=== PATIENT | female | born 1940 | race Caucasian/White ===

== ENCOUNTER 2018-01-14 12:50 | Emergency (ER) | payer MEDICARE, BC ==
[2018-01-14 13:03] VITALS: BP 130/60; PULSE 84; RESP 20; TEMP 98.1
--- NOTE | 2018-01-14 13:34 | ED ---
General Adult HPI - General Chief complaint: Urogenital Stated complaint: Cannot Urinate Time Seen by Provider: 01/14/18 13:13 Source: patient, RN notes reviewed Mode of arrival: wheelchair Limitations: no limitations - History of Present Illness Initial comments: 77-year-old female presents with concern for bladder prolapse. Patient has had small bulging sensation in her vagina for the past several months. Today she noticed a large swelling coming from her vagina. She also states she had difficulty urinating. Denies fever or chills. Denies any changes in her bowels. She does have history of hemorrhoids. She has not seen a cargo surveyor regarding this issue. - Related Data Previous Rx's Medication Instructions Recorded Nitrofurantoin Macrocrystal 100 mg PO BID #14 cap 01/14/18 [Macrodantin] Allergies Allergy/AdvReac Type Severity Reaction Status Date / Time No Known Allergies Allergy Verified 01/14/18 13:02 Review of Systems ROS Statement: Those systems with pertinent positive or pertinent negative responses have been documented in the HPI. ROS Other: All systems not noted in ROS Statement are negative. Past Medical History Past Medical History: Hypertension, Myocardial Infarction ([place]) History of Any Multi-Drug Resistant Organisms: None Reported Past Surgical History: Joint Replacement, Orthopedic Surgery Past Psychological History: No Psychological Hx Reported Smoking Status: Never smoker Past Alcohol Use History: None Reported Past Drug Use History: None Reported General Exam Limitations: no limitations General appearance: alert, in no apparent distress Head exam: Present: atraumatic, normocephalic Eye exam: Present: normal appearance, PERRL, EOMI ENT exam: Present: normal exam Neck exam: Present: normal inspection. Absent: tenderness, meningismus Respiratory exam: Present: normal lung sounds bilaterally. Absent: respiratory distress, wheezes Cardiovascular Exam: Present: regular rate, normal rhythm GI/Abdominal exam: Present: soft. Absent: distended, tenderness, guarding Rectal exam: Present: hemorrhoids External exam: Present: swelling, other (Bladder prolapse) Speculum exam: Absent: erythema, cervical discharge, vaginal bleeding Extremities exam: Present: normal inspection, full ROM. Absent: tenderness Neurological exam: Present: alert, oriented X3 Psychiatric exam: Present: normal affect, normal mood Skin exam: Present: warm, dry, intact Course Vital Signs 01/14/18 12:59 Temperature 98.1 F Pulse Rate 84 Respiratory 20 Rate Blood Pressure 130/60 O2 Sat by Pulse 98 Oximetry Medical Decision Making - Medical Decision Making 77-year-old female presenting with vaginal bulge, exam consistent with bladder prolapse. Bladder is reduced without pain or difficulty. Patient is able to urinate in the emergency department, no issues. Urinalysis is positive for UTI. Patient will be started on nitrofurantoin, awaiting culture results. - Lab Data Lab Results 01/14/18 Range/Units 13:22 Urine Color Light Yellow Urine Appearance Cloudy H (Clear) Urine pH 5.0 (5.0-8.0) Ur Specific [place] 1.007 (1.001-1.035) Urine Protein Negative (Negative) Urine Glucose (UA) Negative (Negative) Urine Ketones Negative (Negative) Urine Blood Negative (Negative) Urine Nitrite Positive H (Negative) Urine Bilirubin Negative (Negative) Urine Urobilinogen <2.0 (<2.0) mg/dL Ur Leukocyte Esterase Large H (Negative) Urine RBC 10 H (0-5) /hpf Urine WBC 43 H (0-5) /hpf Urine WBC Clumps Rare H (None) /hpf Ur Squamous Epith Cells <1 (0-4) /hpf Urine Bacteria Many H (None) /hpf Hyaline Casts 3 H (0-2) /lpf Urine Mucus Rare H (None) /hpf Disposition Clinical Impression: Bladder prolapse, UTI (urinary tract infection) Disposition: HOME SELF-CARE Condition: Good Instructions: Uterine Prolapse (ED), Urinary Tract Infection in Women (ED) Prescriptions: Nitrofurantoin Macrocrystal [Macrodantin] 100 mg PO BID #14 cap Referrals: Ashley Gordon MD [Primary Care Provider] - 1-2 days Logan Huber MD [STAFF PHYSICIAN] - 1-2 days Antoni Mane DO [Doctor of Osteopathic Medicine] - 1-2 days Time of Disposition: 13:33
[2018-01-14 13:37] LABS: Appearance,Urine Cloudy (Clear); Bacteria,Urine Many /hpf; Bilirubin,Urine Negative (Negative); Blood,Urine Negative (Negative); Color,Urine Light Yellow; Glucose,Urine (UA) Negative (Negative); Hyaline Casts,Urine 3 /lpf (0-2); Ketones,Urine Negative (Negative); Leukocyte Esterase,Urine Large (Negative); Mucus,Urine Rare /hpf; Protein,Urine Negative (Negative); RBC,Urine 10 /hpf (0-5); Specific Gravity,Urine 1.007 (1.001-1.035); Squamous Epithelial Cell,Urine <1 /hpf (0-4); Urobilinogen,Urine <2.0 mg/dL (<2.0); WBC,Urine 43 /hpf (0-5)
== END 2018-01-14 13:55 | disposition home or self-care (01) ==
LOC: EC 12:50
DX: N81.10 Cystocele, unspecified (principal); N39.0 Urinary tract infection, site not specified; K64.9 Unspecified hemorrhoids
CPT/HCPCS: 81001; 87077; 87086; 87186; 99283

== ENCOUNTER → 2018-03-10 | Outpatient (CLI) | payer MEDICARE, BC ==
[2018-03-10 18:33] LABS: Albumin 4.4 g/dL (3.5-5.0); Calcium 9.5 mg/dL (8.4-10.2); Potassium 4.2 mmol/L (3.5-5.1); Total Bilirubin 0.5 mg/dL (0.2-1.3)
[2018-03-10 18:38] LABS: Basophils % (A) 0 %; Eosinophils # (A) 0.3 k/uL (0-0.7); Eosinophils % (A) 3 %; HCT 39.6 % (34.0-46.0); HGB 13.1 gm/dL (11.4-16.0); Lymphocytes % (A) 18 %; MCH 28.7 pg (25.0-35.0); MCHC 32.9 g/dL (31.0-37.0); MCV 87.3 fL (80.0-100.0); Mean Platelet Volume 8.4; Monocytes # (A) 0.6 k/uL (0-1.0); Monocytes % (A) 5 %; Neutrophils # (A) 7.7 k/uL (1.3-7.7); Neutrophils % (A) 71 %; Platelet Count 355 k/uL (150-450); RBC 4.54 m/uL (3.80-5.40); RDW 12.7 % (11.5-15.5); WBC 10.8 k/uL (3.8-10.6)
[2018-03-10 18:42] LABS: T4, Free (Free Thyroxine) 1.28 ng/dL (0.78-2.19)
[2018-03-11 02:00] LABS: Vitamin D 25 Hydroxy 8.9 ng/mL (30.0-100.0)
== END ==
LOC: MMGSC 15:03
PROVIDERS: ATTEND Family Medicine
DX: N39.0 Urinary tract infection, site not specified (principal); R10.9 Unspecified abdominal pain
CPT/HCPCS: 36415; 80053; 82306; 82607; 84439; 84443; 85025

== ENCOUNTER 2024-07-29 12:40 | Observation (INO) | payer MEDICARE ==
[2024-07-29] MEDS: SODIUM CHLORIDE 0.9% 1,000 ML IV STA (13:13)
[2024-07-29 13:16] LABS: Basophils # (A) 0.1 k/uL (0-0.2); Basophils % (A) 1 %; Eosinophils # (A) 0.1 k/uL (0-0.7); Eosinophils % (A) 1 %; HCT 38.1 % (34.0-46.0); HGB 12.4 gm/dL (11.4-16.0); Lymphocytes # (A) 1.4 k/uL (1.0-4.8); Lymphocytes % (A) 14 %; MCH 30.1 pg (25.0-35.0); MCHC 32.7 g/dL (31.0-37.0); MCV 92.2 fL (80.0-100.0); Mean Platelet Volume 7.6; Monocytes # (A) 0.5 k/uL (0-1.0); Monocytes % (A) 5 %; Neutrophils # (A) 8.3 k/uL (1.3-7.7); Neutrophils % (A) 78 %; Platelet Count 274 k/uL (150-450); RBC 4.13 m/uL (3.80-5.40); RDW 12.4 % (11.5-15.5); WBC 10.6 k/uL (3.8-10.6)
--- NOTE | 2024-07-29 13:16 | ED ---
General Adult HPI - General Chief complaint: Syncope Stated complaint: syncope Time Seen by Provider: 07/29/24 12:44 Source: patient, RN notes reviewed Mode of arrival: EMS Limitations: no limitations - History of Present Illness Initial comments: Patient is an 84-year-old female presenting to the emergency department with concerns with syncopal episode. Episode was after lunch and lasted a minute or 2. Patient did have nausea and vomiting following this that has resolved and patient is feeling normal at this time. No history of similar symptoms previously. No chest or back pain. No abdominal pain. No dyspnea. No confusion or weakness - Related Data Home Medications Medication Instructions Recorded Confirmed Furosemide [Lasix] 20 mg PO DAILY 01/14/18 07/29/24 lisinopriL 40 mg PO DAILY 01/14/18 07/29/24 Atorvastatin [Lipitor] 10 mg PO DAILY 07/29/24 07/29/24 amLODIPine [Norvasc] 10 mg PO DAILY 07/29/24 07/29/24 Allergies Allergy/AdvReac Type Severity Reaction Status Date / Time No Known Allergies Allergy Verified 01/14/18 13:43 Review of Systems ROS Statement: Those systems with pertinent positive or pertinent negative responses have been documented in the HPI. ROS Other: All systems not noted in ROS Statement are negative. Constitutional: Denies: fever Eyes: Denies: eye pain ENT: Denies: ear pain Cardiovascular: Denies: chest pain Gastrointestinal: Reports: as per HPI, nausea, vomiting. Denies: abdominal pain Musculoskeletal: Denies: back pain Neurological: Denies: headache, weakness Past Medical History Past Medical History: Hypertension, Myocardial Infarction ([place]) History of Any Multi-Drug Resistant Organisms: None Reported Past Surgical History: Joint Replacement, Orthopedic Surgery Past Psychological History: No Psychological Hx Reported Past Alcohol Use History: None Reported Past Drug Use History: None Reported General Exam Limitations: no limitations General appearance: alert, in no apparent distress Head exam: Present: normocephalic Eye exam: Present: normal appearance, PERRL, EOMI Neck exam: Present: normal inspection. Absent: tenderness, meningismus Respiratory exam: Present: normal lung sounds bilaterally Cardiovascular Exam: Present: regular rate, normal rhythm GI/Abdominal exam: Present: soft. Absent: tenderness Extremities exam: Present: normal inspection. Absent: pedal edema, calf tenderness Neurological exam: Present: alert, CN II-XII intact. Absent: motor sensory deficit Expanded Neurological exam: Present: protecting the airway Patient oriented to: Present: person, place. Absent: time (Has difficulty with this however believes it may be 24 on third attempt) Speech: Present: fluid speech Cranial nerves: EOM's Intact: Normal Motor strength exam: RUE: 5, LUE: 5, RLE: 5, LLE: 5 Eye Response: (4) open spontaneously Motor Response: (6) obeys commands Verbal Response: (4) confused conversation Psychiatric exam: Present: normal affect, normal mood Skin exam: Present: normal color Course Vital Signs 07/29/24 12:46 Temperature 97.7 F Pulse Rate 64 Respiratory 16 Rate Blood Pressure 97/47 O2 Sat by Pulse 96 Oximetry EKG Findings - EKG Results: EKG: interpreted by MERLIN (Left axis. Inferior Q waves. Poor R wave progression.), sinus rhythm, normal ST/T Medical Decision Making - Medical Decision Making Was pt. sent in by a medical professional or institution (, PA, BUTTON MACHINE OPERATOR, urgent care, hospital, or snf...) When possible be specific @ -No Did you speak to anyone other than the patient for history (EMS, parent, family, police, friend...)? What history was obtained from this source @ -Family is present and provides history of syncopal episode as patient does not recall Did you review nursing and triage notes (agree or disagree)? Why? @ -I reviewed and agree with nursing and triage notes Were old charts reviewed (outside hosp., previous admission, EMS record, old EKG, old radiological studies, urgent care reports/EKG's, snf records)? Report findings @ -Previous labs reviewed including BUN and creatinine Differential Diagnosis (chest pain, altered mental status, abdominal pain women, abdominal pain men, vaginal bleeding, weakness, fever, dyspnea, syncope, headache, dizziness, GI bleed, back pain, seizure, CVA, palpatations, mental health, musculoskeletal)? @ -Differential Syncope: Valvular disease, hypertrophic cardiomyopathy, pulmonary embolism, tamponade, tachycardia, bradycardia, VT, hypovolemia, hemorrhage, dissection, anemia, intracranial hemorrhage, seizure, hypoglycemia, carbon monoxide poisoning, this is not meant to be an all-inclusive list. EKG interpreted by me (3pts min.). @ -As above X-rays interpreted by me (1pt min.). @ -Chest x-ray shows no acute process CT interpreted by me (1pt min.). @ -CT scan of the brain does not reveal acute abnormality U/S interpreted by me (1pt. min.). @ -None done What testing was considered but not performed or refused? (CT, X-rays, U/S, labs)? Why? @ -None What meds were considered but not given or refused? Why? @ -None Did you discuss the management of the patient with other professionals (professionals i.e. , PA, BUTTON MACHINE OPERATOR, lab, RT, psych nurse, social service assistant, day haul or farm charter bus driver, teacher, postal sorting officer, upper caser)? Give summary @ -Case discussed with practitioner Mert who will admit covering Dr. Bhakat Was smoking cessation discussed for >3mins.? @ -No Was critical care preformed (if so, how long)? @ -No Were there social determinants of health that impacted care today? How? ( Homelessness, low income, unemployed, alcoholism, drug addiction, transportation, low edu. Level, literacy, decrease access to med. care, longterm, rehab)? @ -No Was there de-escalation of care discussed even if they declined (Discuss DNR or withdrawal of care, Hospice)? DNR status @ -No What co-morbidities impacted this encounter? (DM, HTN, Smoking, COPD, CAD, Cancer, CVA, ARF, Chemo, Hep., AIDS, mental health diagnosis, sleep apnea, morbid obesity)? @ -None Was patient admitted / discharged? Hospital course, mention meds given and route, prescriptions, significant lab abnormalities, going to OR and other pertinent info. @ -Patient presents with syncopal episode. Blood pressure is on the lower side. Patient has evidence of dehydration. Patient will be admitted, admission orders written. Undiagnosed new problem with uncertain prognosis? @ -No Drug Therapy requiring intensive monitoring for toxicity (Heparin, Nitro, Insulin, Cardizem)? @ -No Were any procedures done? @ -No Diagnosis/symptom? @ -Syncope, dehydration Acute, or Chronic, or Acute on Chronic? @ -Acute, acute Uncomplicated (without systemic symptoms) or Complicated (systemic symptoms)? @ -Default Side effects of treatment? @ -No Exacerbation, Progression, or Severe Exacerbation? @ -No Poses a threat to life or bodily function? How? (Chest pain, USA, VT, pneumonia, PE, COPD, DKA, ARF, appy, cholecystitis, CVA, Diverticulitis, Homicidal, Suicidal, threat to staff... and all critical care pts) @ -No - Lab Data Result diagrams: 07/29/24 13:02 07/29/24 13:02 Lab Results 07/29/24 07/29/24 07/29/24 Range/Units 13:02 13:02 13:02 WBC 10.6 (3.8-10.6) k/uL RBC 4.13 (3.80-5.40) m/uL Hgb 12.4 (11.4-16.0) gm/dL Hct 38.1 (34.0-46.0) % MCV 92.2 (80.0-100.0) fL MCH 30.1 (25.0-35.0) pg MCHC 32.7 (31.0-37.0) g/dL RDW 12.4 (11.5-15.5) % Plt Count 274 (150-450) k/uL MPV 7.6 Neutrophils % 78 % Lymphocytes % 14 % Monocytes % 5 % Eosinophils % 1 % Basophils % 1 % Neutrophils # 8.3 H (1.3-7.7) k/uL Lymphocytes # 1.4 (1.0-4.8) k/uL Monocytes # 0.5 (0-1.0) k/uL Eosinophils # 0.1 (0-0.7) k/uL Basophils # 0.1 (0-0.2) k/uL PT 10.1 (10.0-12.5) sec INR 0.9 (<1.2) APTT 20.5 L (22.0-30.0) sec Sodium 138 (137-145) mmol/L Potassium 4.6 (3.5-5.1) mmol/L Chloride 108 H (98-107) mmol/L Carbon Dioxide 22 (22-30) mmol/L Anion Gap 8 mmol/L BUN 41 H (7-17) mg/dL Creatinine 1.20 H (0.52-1.04) mg/dL Est GFR (CKD-EPI)AfAm 48 (>60 ml/min/1.73 sqM) Est GFR (CKD-EPI)NonAf 41 (>60 ml/min/1.73 sqM) Glucose 165 H (74-99) mg/dL Calcium 9.2 (8.4-10.2) mg/dL Magnesium 2.0 (1.6-2.3) mg/dL Total Bilirubin 1.0 (0.2-1.3) mg/dL AST 28 (14-36) U/L ALT 14 (4-34) U/L Alkaline Phosphatase 71 (38-126) U/L Troponin I (0.000-0.034) ng/mL Total Protein 6.6 (6.3-8.2) g/dL Albumin 4.1 (3.5-5.0) g/dL 07/29/24 Range/Units 13:02 WBC (3.8-10.6) k/uL RBC (3.80-5.40) m/uL Hgb (11.4-16.0) gm/dL Hct (34.0-46.0) % MCV (80.0-100.0) fL MCH (25.0-35.0) pg MCHC (31.0-37.0) g/dL RDW (11.5-15.5) % Plt Count (150-450) k/uL MPV Neutrophils % % Lymphocytes % % Monocytes % % Eosinophils % % Basophils % % Neutrophils # (1.3-7.7) k/uL Lymphocytes # (1.0-4.8) k/uL Monocytes # (0-1.0) k/uL Eosinophils # (0-0.7) k/uL Basophils # (0-0.2) k/uL PT (10.0-12.5) sec INR (<1.2) APTT (22.0-30.0) sec Sodium (137-145) mmol/L Potassium (3.5-5.1) mmol/L Chloride (98-107) mmol/L Carbon Dioxide (22-30) mmol/L Anion Gap mmol/L BUN (7-17) mg/dL Creatinine (0.52-1.04) mg/dL Est GFR (CKD-EPI)AfAm (>60 ml/min/1.73 sqM) Est GFR (CKD-EPI)NonAf (>60 ml/min/1.73 sqM) Glucose (74-99) mg/dL Calcium (8.4-10.2) mg/dL Magnesium (1.6-2.3) mg/dL Total Bilirubin (0.2-1.3) mg/dL AST (14-36) U/L ALT (4-34) U/L Alkaline Phosphatase (38-126) U/L Troponin I <0.012 (0.000-0.034) ng/mL Total Protein (6.3-8.2) g/dL Albumin (3.5-5.0) g/dL Disposition Clinical Impression: Syncope, Dehydration Disposition: ADMITTED IP TO THIS HOSP Is patient prescribed a controlled substance at d/c from ED?: No Referrals: None,Stated [REFERRING] - 1-2 days Time of Disposition: 14:09
--- NOTE | 2024-07-29 13:29 | XR ---
EXAMINATION TYPE: XR chest 2V DATE OF EXAM: 07/29/2024 1:25 PM CLINICAL INDICATION: Female, 84 years old with history of syncope; PH[facility] COMPARISON: None TECHNIQUE: XR chest 2V Frontal view of the chest. FINDINGS: Lungs/Pleura: There is no evidence of pleural effusion, focal consolidation, or pneumothorax. Pulmonary vascularity: Unremarkable. Heart/mediastinum: Cardiomediastinal silhouette is unremarkable. Musculoskeletal: No acute osseous pathology. IMPRESSION: No acute cardiopulmonary disease/process.
[2024-07-29 13:32] LABS: ALT 14 U/L (4-34); African American GFR (CKD) 48 (>60 ml/min/1.73 sqM); Albumin 4.1 g/dL (3.5-5.0); Anion Gap 8 mmol/L; Blood Urea Nitrogen 41 mg/dL (7-17); Calcium 9.2 mg/dL (8.4-10.2); Carbon Dioxide 22 mmol/L (22-30); Chloride 108 mmol/L (98-107); Glucose 165 mg/dL (74-99); Non-African American GFR(CKD) 41 (>60 ml/min/1.73 sqM); Sodium 138 mmol/L (137-145); Total Protein 6.6 g/dL (6.3-8.2)
[2024-07-29 13:36] LABS: INR 0.9 (<1.2); Prothrombin Time 10.1 sec (10.0-12.5)
[2024-07-29 13:41] LABS: AST 28 U/L (14-36); Alkaline Phosphatase 71 U/L (38-126); Potassium 4.6 mmol/L (3.5-5.1)
--- NOTE | 2024-07-29 13:44 | CT ---
EXAMINATION TYPE: CT brain wo con CT DLP: 1012 mGycm, Automated exposure control for dose reduction was used. DATE OF EXAM: 07/29/2024 1:30 PM COMPARISON: None. CLINICAL INDICATION: Female, 84 years old with history of syncope TECHNIQUE: Brain: Axial CT images of the brain were obtained with coronal and sagittal reformats created and rev iewed. Contrast used: None. Oral contrast used: None. FINDINGS: Brain: Extra-axial spaces: No abnormal extra-axial fluid collections. Ventricular system: Dilatation in proportion to cerebral atrophy. Cerebral parenchyma: Cerebral atrophy. No acute intraparenchymal hemorrhage or mass effect. The wagner -white junction is well differentiated. Scattered hypoattenuating areas are seen within the white mat ter. Cerebellum: Unremarkable. Mass effect: No evidence of midline shift. Intracranial vasculature: unremarkable Soft tissues: Normal. Calvarium/osseous structures: No depressed skull fracture. Paranasal sinuses and mastoid air cells: Mild scattered paranasal sinus disease. Visualized orbits: Bilateral aphakia IMPRESSION: 1. No acute intracranial process. 2. Nonspecific white matter changes, likely secondary to chronic small vessel ischemic disease.
[2024-07-29 13:51] LABS: Partial Thromboplastin Time 20.5 sec (22.0-30.0)
[2024-07-29] MEDS ORDERED: NALOXONE 0.4 MG/ML 1 ML VIAL IV PRN (14:09)
[2024-07-29] MEDS: SODIUM CHLORIDE 0.9% 1,000 ML IV SCH (14:44)
--- NOTE | 2024-07-29 17:09 | P.HPIM ---
History of Present Illness H&P Date: 07/29/24 84 year old F with PMH of HTN, [place], h/o bleeding ulcer presents to the ED with her daughter for syncope. Daughter is at bedside contributing to the history. Patient reports going to the restaurant and sitting at a davies to eat her meal. While eating, she started to feel flushed. Daughter reports patient slumped over the table and loss consciousness for one minute. No shaking or bladder/bowel incontinence. Denies chest pain, shortness of breath, palpitations prior to the episode or currently. Daughter reports patient has been on the same BP medications for the last 13 years but recently lost 10 pounds. Currently she feels find and reports no complaints. In the ED she underwent extensive evalua tion. BP 97/47, HR 64, T97.7F, RR 16, 96% on RA. CBC, Coag panel, CMP significant for neutrophil count of 8.3, APTT 20.5, Cl 108, BUN 41, Cr 1.2, glu 165. Mag 2. Troponin < 0.012. EKG sinus arrhythmia. CXR negative. CT brain chronic small vessel ischemia. Patient is admitted for Cardiology evaluation. General: non toxic, no distress, appears at stated age Derm: Warm, dry Head: Atraumatic, normocephalic, symmetric Eyes: EOMI, no lid lag, anicteric sclera Mouth: No lip lesion, mucus membranes moist Cardiovascular: S1 S2 reg. No murmurs, rubs, gallops Lungs: Decreased BS bilaterally, no accessory muscle use Abdominal: Soft, distended, non tender to palpation Ext: No gross muscle atrophy, no edema, no contractures Neuro: No focal neurologic deficits Psych: Alert, oriented, appropriate affect Based on my assessment of this patient, this patient meets a high complexity level of care. Syncope: Unclear etiology. Patient was hypotensive on admission. No changes in position. Orthostats negative. Initial Trop negative. Trend Trop/EKG to rule out ACS. Start NS at 75 cc/hr. Telemetry monitoring. Order Echo. Cardiology consult. Elevated Cr: Likely CKD. Appears at baseline when compared to [id number] labs. Hypotension: Hold Lasix, Lisinopril, Amlodipine. Monitor BP Q4H. CAD: Lipitor 10 mg PO QD. No ASA due to h/o bleeding ulcer. CODE STATUS: NO CODE DVT Prophylaxis: Heparin SQ GI Prophylaxis: Designated medical POA if patient is not able to make medical decisions for themselves: Daughter I have reviewed the following eligibility consultant notes: ED note I have reviewed the results of the following tests: As above. I have ordered the following tests: As above. I have discussed the care of this patient with the following independent historian: I have independently interpreted the following test below: CXR I have discussed the management of this patient with the following physician: Dr. Hope Past Medical History Past Medical History: Hypertension, Myocardial Infarction ([place]) History of Any Multi-Drug Resistant Organisms: None Reported Past Surgical History: Joint Replacement, Orthopedic Surgery Past Psychological History: No Psychological Hx Reported Past Alcohol Use History: None Reported Past Drug Use History: None Reported Medications and Allergies Home Medications Medication Instructions Recorded Confirmed Type Furosemide [Lasix] 20 mg PO DAILY 01/14/18 07/29/24 History lisinopriL 40 mg PO DAILY 01/14/18 07/29/24 History Atorvastatin [Lipitor] 10 mg PO DAILY 07/29/24 07/29/24 History amLODIPine [Norvasc] 10 mg PO DAILY 07/29/24 07/29/24 History Allergies Allergy/AdvReac Type Severity Reaction Status Date / Time No Known Allergies Allergy Verified 01/14/18 13:43 Physical Exam Vitals: Vital Signs Temp Pulse Pulse Pulse Pulse Resp BP 07/29/24 15:09 85 72 62 16 07/29/24 12:46 97.7 F 64 16 97/47 BP BP BP Pulse Ox 07/29/24 15:09 118/57 117/49 95/46 07/29/24 12:46 96 Intake and Output 07/29/24 07/29/24 07/29/24 06:59 14:59 22:59 Other: Weight 55.338 kg Results CBC & Chem 7: 07/29/24 13:02 07/29/24 13:02 Labs: Abnormal Lab Results - Last 24 Hours (Table) 07/29/24 07/29/24 07/29/24 Range/Units 13:02 13:02 13:02 Neutrophils # 8.3 H (1.3-7.7) k/uL APTT 20.5 L (22.0-30.0) sec Chloride 108 H (98-107) mmol/L BUN 41 H (7-17) mg/dL Creatinine 1.20 H (0.52-1.04) mg/dL Glucose 165 H (74-99) mg/dL
[2024-07-30] MEDS: lisinopriL 20 MG TAB PO SCH (08:08)
[2024-07-30] MEDS: ATORVASTATIN 10 MG TAB PO SCH (08:08)
[2024-07-30] MEDS: amLODIPine 5 MG TAB PO SCH (08:09)
[2024-07-30 08:50] LABS: Blood Urea Nitrogen 31.2 mg/dL (9.0-27.0); Calcium 8.5 mg/dL (8.7-10.3); Carbon Dioxide 21.7 mmol/L (21.6-31.8); Chloride 110 mmol/L (96-109); Glucose 110 mg/dL (70-110); Potassium 3.9 mmol/L (3.5-5.5); Sodium 141 mmol/L (135-145)
--- NOTE | 2024-07-30 10:01 | P.CRDCN ---
History of Present Illness History of present illness: HISTORY OF PRESENT ILLNESS: This is a 84-year-old female with a past medical history significant for hypertension and hyperlipidemia. Patient does not follow with a naturopathic doctor. We have been asked to see the patient in consultation for syncope. Patient examined at the bedside. Patient's daughter is present and providing majority of HPI. She states yesterday they were out to lunch when the patient began to complain of feeling hot and wanting to leave the restaurant. Patient then suddenly passed out. Patient's daughter states that when she came to she did have an episode of emesis. The patient has had a prior episode of syncope similar to this a few years ago. The patient denies having any chest pain or pressure. She denies have any shortness of breath. Denies any dizziness or lightheadedness. The patient's daughter does report that she had blood work performed recently and was told that the patient's kidney function was slightly off. She states that she was supposed to get her labs redrawn next month. She also reports that her mother has lost weight recently and her blood pressure has been running on the lower side at home. She is concerned about the amount of blood pressure medication she is taking on an outpatient basis. DIAGNOSTICS: - EKG reveals sinus mechanism with no signs of acute ischemia - Chest xray negative for acute process - Laboratory data: WBC 10.6. Hemoglobin 12.4. Platelet count 274. Sodium 141. Potassium 3.9. BUN 31. Creatinine 1.2. Troponin negative x 2. - Current home cardiac medications include Lasix 20 mg daily, lisinopril 40 mg daily, atorvastatin 10 mg daily, amlodipine 10 mg daily REVIEW OF SYSTEMS: At the time of my exam: CONSTITUTIONAL: Denies fever or chills. HEENT: Denies blurred vision, vision changes, or eye pain. Denies hemoptysis CARDIOVASCULAR: Denies chest pain. Denies orthopnea. Denies PND. Denies palpitations RESPIRATORY: Denies shortness of breath. GASTROINTESTINAL: Denies abdominal pain. Denies nausea or vomiting. HEMATOLOGIC: Denies bleeding disorders. GENITOURINARY: Denies any blood in urine. SKIN: Denies pruitis. Denies rash. PHYSICAL EXAM: VITAL SIGNS: Reviewed. GENERAL: Well-developed in no acute distress. HEENT: Head is normocephalic. Pupils are equal, round. Sclerae anicteric. Mucous membranes of the mouth are moist. Neck supple. No JVD or thyromegaly LUNGS: Respirations even and unlabored. Lungs essentially clear to auscultation bilaterally. HEART: Regular rate and rhythm. S1 and S2 heard. ABDOMEN: Soft. Nondistended. Nontender. EXTREMITIES: Normal range of motion. No clubbing or cyanosis. Peripheral pulses intact. No lower extremity edema NEUROLOGIC: Awake and alert. Oriented x 3. ASSESSMENT: Syncope, suspect secondary to intravascular volume depletion Elevated BUN Hypertension Hyperlipidemia Recent weight loss PLAN: Obtain 2D echo to assess cardiac structure and function Discontinue Lasix Continue IV fluids Decrease amlodipine to 5 mg daily and decrease lisinopril to 20 mg daily Patient may be discharged home this afternoon from a cardiac standpoint Will consider outpatient event monitor and stress testing Patient to follow-up postdischarge with Dr. Cali Nurse practitioner note has been reviewed by physician. Signing provider agrees with the documented findings, assessment, and plan of care documented by NEEDLE MOLDER as a scribe. Past Medical History Past Medical History: Hypertension, Myocardial Infarction (DC) Last Myocardial Infarction Date:: 1994? History of Any Multi-Drug Resistant Organisms: None Reported Past Surgical History: Joint Replacement, Orthopedic Surgery Additional Past Surgical History / Comment(s): knee Past Anesthesia/Blood Transfusion Reactions: Postoperative Nausea & Vomiting (PONV) Past Psychological History: No Psychological Hx Reported Past Alcohol Use History: None Reported Past Drug Use History: None Reported - Past Family History Mother Additional Family Medical History / Comment(s): lymphoma Medications and Allergies Home Medications Medication Instructions Recorded Confirmed Type lisinopriL 40 mg PO DAILY 01/14/18 07/29/24 History Atorvastatin [Lipitor] 10 mg PO DAILY 07/29/24 07/29/24 History amLODIPine [Norvasc] 10 mg PO DAILY 07/29/24 07/29/24 History Allergies Allergy/AdvReac Type Severity Reaction Status Date / Time No Known Allergies Allergy Verified 01/14/18 13:43 Physical Exam Vitals: Vital Signs Temp Pulse Pulse Pulse Pulse Pulse Resp 07/30/24 02:53 97.5 F L 73 16 07/29/24 22:32 98.2 F 57 L 16 07/29/24 20:25 98.0 F 62 16 07/29/24 15:09 85 72 62 16 07/29/24 12:46 97.7 F 64 16 BP BP BP BP Pulse Ox 07/30/24 02:53 130/69 97 07/29/24 22:32 113/56 97 07/29/24 20:25 109/51 94 L 07/29/24 15:09 118/57 117/49 95/46 07/29/24 12:46 97/47 96 Intake and Output 07/29/24 07/30/24 07/30/24 22:59 06:59 14:59 Other: # Voids 2 Results 07/29/24 13:02 07/30/24 02:52 Cardiac Enzymes 07/29/24 07/29/24 07/29/24 Range/Units 13:02 13:02 20:47 AST 28 (14-36) U/L Troponin I <0.012 <0.012 (0.000-0.034) ng/mL Coagulation 07/29/24 Range/Units 13:02 PT 10.1 (10.0-12.5) sec APTT 20.5 L (22.0-30.0) sec CBC 07/29/24 Range/Units 13:02 WBC 10.6 (3.8-10.6) k/uL RBC 4.13 (3.80-5.40) m/uL Hgb 12.4 (11.4-16.0) gm/dL Hct 38.1 (34.0-46.0) % Plt Count 274 (150-450) k/uL Comprehensive Metabolic Panel 07/29/24 Range/Units 13:02 Sodium 138 (137-145) mmol/L Potassium 4.6 (3.5-5.1) mmol/L Chloride 108 H (98-107) mmol/L Carbon Dioxide 22 (22-30) mmol/L BUN 41 H (7-17) mg/dL Creatinine 1.20 H (0.52-1.04) mg/dL Glucose 165 H (74-99) mg/dL Calcium 9.2 (8.4-10.2) mg/dL AST 28 (14-36) U/L ALT 14 (4-34) U/L Alkaline Phosphatase 71 (38-126) U/L Total Protein 6.6 (6.3-8.2) g/dL Albumin 4.1 (3.5-5.0) g/dL Current Medications Generic Name Dose Route Start Last Admin Trade Name Freq PRN Reason Stop Dose Admin Atorvastatin Calcium 10 mg 07/30/24 09:00 Atorvastatin 10 Mg Tab PO DAILY JOHN Naloxone HCl 0.2 mg 07/29/24 14:09 Naloxone 0.4 Mg/Ml 1 Ml Vial IV Q2M PRN Opioid Reversal Intake and Output 07/29/24 07/30/24 07/30/24 22:59 06:59 14:59 Other: # Voids 2 07/29/24 13:02 07/29/24 13:02
--- NOTE | 2024-07-30 10:53 | P.DS ---
Providers Date of admission: 07/29/24 14:11 Expected date of discharge: 07/30/24 Attending physician: Jer Tate MD Consults: 07/29/24 14:09 Consult Physician Routine Consulting Provider: Raimundo Castillo Consult Reason/Comments: syncope Do you want consulting provider notified?: Yes Primary care physician: [facility] Course: 84 year old F with PMH of HTN, LA, h/o bleeding ulcer presents to the ED with her daughter for syncope. Daughter is at bedside contributing to the history. Patient reports going to the restaurant and sitting at a davies to eat her meal. While eating, she started to feel flushed. Daughter reports patient slumped over the table and loss consciousness for one minute. No shaking or bladder/bowel incontinence. Denies chest pain, shortness of breath, palpitations prior to the episode or currently. Daughter reports patient has been on the same BP medications for the last 13 years but recently lost 10 pounds. Currently she feels find and reports no complaints. In the ED she underwent extensive evaluation. BP 97/47, HR 64, T97.7F, RR 16, 96% on RA. CBC, Coag panel, CMP significant for neutrophil count of 8.3, APTT 20.5, Cl 108, BUN 41, Cr 1.2, glu 165. Mag 2. Troponin < 0.012. EKG sinus arrhythmia. CXR negative. CT brain chronic small vessel ischemia. Patient is admitted for Cardiology evaluation. Troponins negative and ACS ruled out. Orthostats were negative. Cardiology consulted, recommended Echo and cut Lisinopril 20 mg and Amlodipine 5 mg and DC Lasix. 07/30 Patient was seen and examined. No complaints. Plans for discharge home today if Echo results are benign. General: non toxic, no distress, appears at stated age Derm: Warm, dry Head: Atraumatic, normocephalic, symmetric Eyes: EOMI, no lid lag, anicteric sclera Mouth: No lip lesion, mucus membranes moist Cardiovascular: S1 S2 reg. No murmurs, rubs, gallops Lungs: Decreased BS bilaterally, no accessory muscle use Abdominal: Soft, non distended, non tender to palpation Ext: No gross muscle atrophy, no edema, no contractures Neuro: No focal neurologic deficits Psych: Alert, oriented, appropriate affect Discharge Diagnosis: Syncope CKD Hypotension CAD This complex discharge took 35 minutes to complete. Patient Condition at Discharge: Stable Plan - Discharge Summary Discharge Rx Participant: No New Discharge Prescriptions: Discontinued Furosemide [Lasix] 20 mg PO DAILY No Action lisinopriL 40 mg PO DAILY Atorvastatin [Lipitor] 10 mg PO DAILY amLODIPine [Norvasc] 10 mg PO DAILY Discharge Medication List lisinopriL 40 mg PO DAILY 01/14/18 [History] Atorvastatin [Lipitor] 10 mg PO DAILY 07/29/24 [History] amLODIPine [Norvasc] 10 mg PO DAILY 07/29/24 [History] Follow up Appointment(s)/Referral(s): None,Stated [REFERRING] - 1-2 days Blanco Cali MD [STAFF PHYSICIAN] - 2 Weeks
[2024-07-30 15:08] VITALS: BP 108/66; PULSE 72; RESP 17; TEMP 98.3
--- NOTE | 2024-07-30 15:53 | CA ---
Transthoracic Echo Report Name: [place] Age: 84 Gender: F : 1940 Exam Date: 07/30/2024 10:11 Exam Location: [place] [facility] Ht (in): 58 Wt (lb): 122 Ordering Physician: Ancelmo John MD Attending/Referring Phys: Galley Stripper Samantha Carlos RDCS Procedure CPT: Indications: Syncope Cardiac Hx: Technical Quality: Good Contrast 1: Total Dose (mL): Contrast 2: Total Dose (mL): MEASUREMENTS (Male / Female) Normal Values 2D ECHO LV Diastolic Diameter PLAX 3.9 cm 4.2 - 5.9 / 3.9 - 5.3 cm LV Systolic Diameter PLAX 2.7 cm IVS Diastolic Thickness 0.8 cm 0.6 - 1.0 / 0.6 - 0.9 cm LVPW Diastolic Thickness 1.2 cm 0.6 - 1.0 / 0.6 - 0.9 cm LV Relative Wall Thickness 0.5 LVOT Diameter 1.9 cm LV Diastolic Volume MOD BP 71.7 cm??? 67 - 155 / 56 - 104 cm??? LV Systolic Volume MOD BP 20.6 cm??? 22 - 58 / 19 - 49 cm??? LV Ejection Fraction MOD BP 71.2 % >= 55 % LV Cardiac Index MOD BP 2218.3 cm???/min???m??? LV Diastolic Volume MOD 4C 61.5 cm??? LV Systolic Volume MOD 4C 20.5 cm??? LV Ejection Fraction MOD 4C 66.7 % LV Cardiac Index MOD 4C 1782.4 cm???/min???m??? LV Diastolic Length 4C 6.8 cm LV Systolic Length 4C 5.7 cm LV Diastolic Volume MOD 2C 78.0 cm??? LV Systolic Volume MOD 2C 20.5 cm??? LV Ejection Fraction MOD 2C 73.7 % LV Cardiac Index MOD 2C 2494.4 cm???/min???m??? LV Diastolic Length 2C 7.3 cm LV Systolic Length 2C 5.6 cm LA Volume 34.7 cm??? 18 - 58 / 22 - 52 cm??? LA Volume Index 22.9 cm???/m??? 16 - 28 cm???/m??? Ascending Aorta Diameter 3.3 cm DOPPLER AV Peak Velocity 161.8 cm/s AV Peak Gradient 10.5 mmHg AV Mean Velocity 113.0 cm/s AV Mean Gradient 5.8 mmHg AV Velocity Time Integral 35.3 cm LVOT Peak Velocity 118.3 cm/s LVOT Peak Gradient 5.6 mmHg LVOT Velocity Time Integral 24.1 cm LVOT Stroke Volume 69.7 cm??? LVOT Stroke Volume Index 47.2 ml/m??? LVOT Cardiac Index 3025.6 cm???/min???m??? AV Area Cont Eq vti 2.0 cm??? AV Area Cont Eq pk 2.1 cm??? MV Area PHT 3.2 cm??? Mitral E Point Velocity 69.2 cm/s Mitral A Point Velocity 92.1 cm/s Mitral E to A Ratio 0.8 MV Deceleration Time 235.0 ms TR Peak Velocity 291.9 cm/s TR Peak Gradient 34.1 mmHg Right Atrial Pressure 5.0 mmHg Pulmonary Artery Systolic Pressu 39.1 mmHg Right Ventricular Systolic Press 39.1 mmHg PV Peak Velocity 86.5 cm/s PV Peak Gradient 3.0 mmHg FINDINGS Left Ventricle Left ventricular ejection fraction is estimated at 60-65 %. Mildly increased posterior wall thickness. Left ventricular cavity size normal. No obvious regional wall motion abnormalities. Right Ventricle Normal right ventricular size and function. Mild pulmonary hypertension. Right Atrium Normal right atrial size. Left Atrium Normal left atrial size. Mitral Valve Structurally normal mitral valve. No evidence for mitral valve prolapse. No mitral stenosis. Trace mitral regurgitation. Aortic Valve Trileaflet aortic valve. Aortic valve sclerosis. No aortic valve stenosis or regurgitation. Tricuspid Valve Structurally normal tricuspid valve. No tricuspid stenosis. [id number] tricuspid regurgitation. Pulmonic Valve Structurally normal pulmonic valve. No pulmonic stenosis. Trace pulmonic regurgitation. Pericardium No pericardial effusion. Prominent epicardial fat. Aorta Normal size aortic root and proximal ascending aorta. CONCLUSIONS Normal LV function Mild to moderate tricuspid regurgitation Previewed by: Dr. Blanco Cali MD (Electronically Signed) Final Date: 30 July 2024 15:53
== END 2024-07-30 18:13 | disposition home or self-care (01) ==
LOC: EC 12:40 → 6NMEDSUR 14:11
PROVIDERS: ADMIT Internal Medicine; ATTEND Internal Medicine
DX: R55 Syncope and collapse (principal); I95.9 Hypotension, unspecified; E86.0 Dehydration; I25.10 Atherosclerotic heart disease of native coronary artery without angina pectoris; I12.9 Hypertensive chronic kidney disease with stage 1 through stage 4 chronic kidney disease, or unspecified chronic kidney disease; N18.9 Chronic kidney disease, unspecified; E78.5 Hyperlipidemia, unspecified; R79.9 Abnormal finding of blood chemistry, unspecified; I25.2 Old myocardial infarction; Z79.899 Other long term (current) drug therapy
CPT/HCPCS: 36415; 70450; 71046; 80048; 80053; 83735; 84484; 85025; 85610; 85730; 93005; 93306; 96360; 96361; 99285